=== PATIENT | female | born 1995 | race Asian ===

== ENCOUNTER 2016-11-29 | Emergency (ER) | payer SELFPAY | END 2016-11-29 15:47 | disposition left against medical advice (07) | DX: Z53.21 Procedure and treatment not carried out due to patient leaving prior to being seen by health care provider (principal) ==

== ENCOUNTER 2018-07-23 15:32 | Emergency (ER) | payer MEDICAID ==
--- NOTE | 2018-07-23 16:12 | ED Physician Documentation ---
History of Present Illness - Stated complaint Stated Complaint: BLEEDING/10WKS - Chief complaint Chief Complaint: Abd Pain - Additonal information Additional information: hx from pt 22 f LMP 05/13 to ED with spotting and cramping no care yet - just + HCG at clinic on [place] Review of Systems Constitutional: denies: Fever GI: reports: Abdominal Pain : reports: Vaginal bleeding, Now EGA PD PAST MEDICAL HISTORY - Past Medical History Psych: Depression - Past Surgical History Past Surgical History: No - Allergies Allergies/Adverse Reactions: Allergies Allergy/AdvReac Type Severity Reaction Status Date / Time No Known Drug Allergies Allergy Verified 07/23/18 15:41 - Social History Does the pt smoke?: No Smoking Status: Never smoker Does the pt drink ETOH?: Yes Does the pt have substance abuse?: Yes Substance Use and Type: Marijuana - Immunizations Immunizations are current?: Yes - POLST Patient has POLST: No PD ED PE NORMAL - Vitals Vital signs reviewed: Yes - Neck Neck: Supple, no meningeal sign - Cardiac Cardiac: RRR - Respiratory Respiratory: No respiratory distress, Clear bilaterally - Abdomen Abdomen: Soft, Other (mild lower abd TTP s rebound or gaurding) - Female Female : Lace Cutter present (Debbie ACOSTA), Other (os closed, no tissue, small to mod dark blood from os) Results - Vitals Vitals: Vital Signs - 24 hr 07/23/18 07/23/18 15:39 18:32 Temperature 36.0 C L Heart Rate 90 74 Respiratory 16 16 Rate Blood Pressure 111/55 L 111/66 O2 Saturation 99 99 Oxygen O2 Source Room air - Labs Labs: Laboratory Tests 07/23/18 07/23/18 07/23/18 16:00 16:05 16:05 HCG, Quant 8877.00 Urine Color YELLOW Urine Clarity CLEAR Urine pH 6.5 Ur Specific [place] 1.010 Urine Protein NEGATIVE Urine Glucose (UA) NEGATIVE Urine Ketones NEGATIVE Urine Occult Blood LARGE H Urine Nitrite NEGATIVE Urine Bilirubin NEGATIVE Urine Urobilinogen 0.2 (NORMAL) Ur Leukocyte Esterase NEGATIVE Urine RBC 11-25 H Urine WBC 0-3 Ur Squamous Epith Cells NONE SEEN Amorphous Sediment Moderate Urine Bacteria None Seen Ur Microscopic Review INDICATED Urine Culture Comments NOT INDICATED Blood Type B POSITIVE PD MEDICAL DECISION MAKING - ED course ED course: 10 weeks by dates quant 8K - well above threshold to see on sono but no IUP on OB sono will consult OBGYN for possible ectopic + blood type seen by Dr Farfan non tender during his exam he favors early IUP or threatened miscarriage, ectopic still possible but unlikely, desired preg, he rec 48 hr rpt quant and [facility] clinic sono (he arrange) and dc with ectopic precautions - Sepsis Event Vital Signs: Vital Signs - 24 hr 07/23/18 07/23/18 15:39 18:32 Temperature 36.0 C L Heart Rate 90 74 Respiratory 16 16 Rate Blood Pressure 111/55 L 111/66 O2 Saturation 99 99 Oxygen O2 Source Room air Departure - Departure Disposition: Home, Self Care Clinical Impression: Hemorrhage, , early Condition: Good Instructions: ED Abdominal Pain Rule Out Ectopic, ED Miscarriage Poss Follow-Up: Demetrio Farfan MD [Provider Admit Priv/Credential] - (Tuesday as planned) Comments: You are Your quantitative HCG value was 8877 Your blood type is B + The ultrasound did not show a yet This means one of three things 1) this is an early and the baby is not yet big enough to be seen 2) this is a miscarriage and the baby has not developed or has already passed out 3) this is an ectopic and the baby is not in the uterus There is no safe way to know for sure which of these three possibilities is going on right now So Dr Farfan recommends that we let you go home and have you come back to the hospital lab to get a repeat quantitative HCG and then be seen in [facility] clinic here on the hospital grounds on Tuesday If at any point between now and then you feel worse - heavier bleeding, feeling faint, severe pain etc, please get a ride straight back to the ER - we are always open Since this may be a normal early , no alcohol, no meds except tylenol, take your vitamins etc
[2018-07-23 16:25] LABS: BILIRUBIN,URINE NEGATIVE (NEGATIVE); GLUCOSE, URINE (UA) NEGATIVE (NEGATIVE); KETONES,URINE (UA) NEGATIVE (NEGATIVE); LEUKOCYTE ESTERASE, URINE NEGATIVE (NEGATIVE); NITRITE,URINE NEGATIVE (NEGATIVE); OCCULT BLOOD,URINE LARGE (NEGATIVE); PH,URINE 6.5 PH (5.0-7.5); PROTEIN,URINE NEGATIVE (NEGATIVE); UROBILINOGEN,URINE 0.2 (NORMAL) E.U./dL (NORMAL)
[2018-07-23 16:27] LABS: CLARITY,URINE CLEAR (CLEAR)
[2018-07-23 16:47] LABS: BACTERIA,URINE None Seen /HPF (None Seen); SQUAMOUS EPITHELIAL CELL,UR NONE SEEN (<= Few)
[2018-07-23 16:48] LABS: AMORPHOUS SEDIMENT,UR Moderate /LPF
--- NOTE | 2018-07-23 17:30 | Ultrasound Report ---
Reason: LMP 7 vag bleed and cramp Procedure Date: 07/23/2018 Accession Number: [id number] / [id number] Procedure: US - OB First Trimester CPT Code: FULL RESULT: EXAM: FIRST TRIMESTER OBSTETRIC ULTRASOUND (Less than 11 weeks) EXAM DATE: 07/23/2018 05:22 PM. CLINICAL HISTORY: LMP 05/13 vag bleed and cramp. LMP: 05/13/2018. COMPARISONS: None. TECHNIQUE: Transabdominal and transvaginal ultrasound examination with static image documentation. CLINICAL DATES: EGA 10 weeks 0 days with ANDREA 02/18/2019 based on LMP. ASSESSMENT: Gestational Sac: Single intrauterine. Mean gestational sac diameter: 9.3 mm = under 5 weeks. Embryo: No embryo or yolk sac visualized. MATERNAL STRUCTURES: Uterus: Anteverted. Unremarkable. Cervix: Closed. Right Ovary/Adnexa: The ovary measures 4.3 x 1.5 x 2.5 cm, volume 8.4 cc. Unremarkable. Left Ovary/Adnexa: The ovary measures 3.9 x 1.7 x 2.4 cm, volume 8.3 cc. Unremarkable. Free Fluid: None. Other: None. IMPRESSION: 1. Intrauterine cystic structure most likely representing a gestational sac with no measurable pole likely due to early gestational age. Correlation with serial beta hCG and follow-up ultrasound in 10-14 days recommended. 2. Normal ovaries. RADIA
[2018-07-23 18:35] VITALS: BP 111/66
--- NOTE | 2018-07-23 23:52 | PREOP HISTORY & PHYSICAL ---
DATE OF SERVICE: 07/23/2018 Physician: Demetrio Farfan MD IDENTIFICATION: A 22-year-old G2, P1 female whose last menstrual period was 05/14/2018, making her 10.0 weeks, giving her EDC of 02/18/2019. CHIEF COMPLAINT: Vaginal bleeding. HISTORY OF PRESENT ILLNESS: Patient states she had some vaginal bleeding started on Tuesday of last week. It was mild. She also has noted some cramping over the last 4 days, passing some small clots, but denies pelvic pain. She denies any history of IUD use, chlamydia, or gonorrhea. She has a 6-month-old baby with her that was born on 07/27/2017. They have been using condoms intermittently for contraception. This is unplanned, but she is currently accepting at this time. PAST MEDICAL HISTORY: Patient denies any hypertensive, diabetic, cardiac, or pulmonary disease. PAST SURGICAL HISTORY: None. ALLERGIES: NONE KNOWN. CURRENT MEDICATIONS: None. HABITS: The patient smokes 1-2 cigarettes per day. Denies use of alcohol. Does smoke pot fairly frequently and had her last dose this morning. She is doing this for anxiety. SOCIAL HISTORY: The patient is and lives with her spouse, works as a homemaker. FAMILY HISTORY: Negative for any SECURITY PROJECT MANAGER cancer. It is negative for diabetes or hypertension. PHYSICAL EXAMINATION GENERAL: Well-developed, well-nourished female, in no acute distress at this time. VITAL SIGNS: Pulse 74, blood pressure 111/66, respirations 16, 99% saturation on room air, temperature 36.0. HEENT: Pupils equal, round. Extraocular muscles intact. Thyroid is not palpably enlarged. HEART: Regular rate and rhythm without murmurs. LUNGS: Lung pena are clear without rales or wheezes. ABDOMEN: Soft, nontender without evidence of any guarding. Good bowel sounds. No CVA tenderness noted. PELVIC: Exam shows a uterus, which is nontender. There is no cervical motion tenderness. There is no adnexal tenderness at this time. DIAGNOSTIC AND IMAGING DATA: Ultrasound performed showed a 9.3-mm sac in the uterus, which is equivalent to a 5-week gestation. No pole was noted. The adnexa showed no masses and there is no fluid in the cul-de-sac. She had a quantitative hCG of 8877. ASSESSMENT AND PLAN 1. A 22-year-old G2, P1, female 10 weeks 0 days. 2. This most likely represents a miscarriage. Certainly is threatened at this time. At this time, with lack of any adnexal findings or ultrasonic findings, the chance of being ectopic are low at this time. However, the patient has been given instructions to monitor for signs or symptoms of ectopic . We will plan to see the patient back in the office on Tuesday, at which time we will obtain a repeat quantitative hCG as well as perform a repeat pelvic examination. TD: 07/23/2018 19:38 MTDD
== END 2018-07-23 19:25 | disposition home or self-care (01) ==
LOC: ED 15:32
DX: O46.91 Antepartum hemorrhage, unspecified, first trimester (principal); Z3A.10 10 weeks gestation of pregnancy
CPT/HCPCS: 36415; 76801; 76817; 81001; 81003; 84702; 86900; 86901; 87086; 87491; 87591; 99283

== ENCOUNTER 2020-09-16 14:53 | Emergency (ER) | payer MEDICAID ==
[2020-09-16 15:17] VITALS: BP 111/91
--- NOTE | 2020-09-16 16:42 | ED Physician Documentation ---
History of Present Illness - Stated complaint Stated Complaint: ITCHY BURNING SKIN - Chief complaint Chief Complaint: Wound - Additonal information Additional information: 24-year-old female presents the emergency department for evaluation of her eczema. She reports a longstanding history of asthma that is gotten acutely worse over the last few weeks and the change in weather. She has been applying Aquaphor but it is not helpful. She now has multiple patches with some scaling as well as open creases. no fevers surrounding erythema Review of Systems Constitutional: reports: Reviewed and negative Eyes: reports: Reviewed and negative Nose: reports: Reviewed and negative Throat: reports: Reviewed and negative Cardiac: reports: Reviewed and negative Respiratory: reports: Reviewed and negative GI: reports: Reviewed and negative : reports: Reviewed and negative Skin: reports: Rash (eczema elbows, abdomen, forearm) Musculoskeletal: reports: Reviewed and negative PD PAST MEDICAL HISTORY - Past Medical History Psych: Depression - Past Surgical History Past Surgical History: No - Present Medications Home Medications: Ambulatory Orders Medication Instructions Recorded Confirmed Triamcinolone 0.5% Cream [Kenalog 1 gm TOP BID #1 tube 09/16/20 0.5% Cream] - Allergies Allergies/Adverse Reactions: Allergies Allergy/AdvReac Type Severity Reaction Status Date / Time No Known Drug Allergies Allergy Verified 07/23/18 15:41 - Social History Does the pt smoke?: No Smoking Status: Never smoker Does the pt drink ETOH?: Yes Does the pt have substance abuse?: Yes - Immunizations Immunizations are current?: Yes - POLST Patient has POLST: No PD ED PE EXPANDED - Derm Derm: Other (Scaling pruritic patches on the abdomen forearms and extensor surface of elbow consistent with eczema. Scaling and cracking but no drainage or surrounding erythema consistent with cellulitis) Results - Vitals Vitals: Vital Signs - 24 hr 09/16/20 15:11 Temperature 36.1 C L Heart Rate 87 Respiratory 14 Rate Blood Pressure 111/91 H O2 Saturation 100 Oxygen O2 Source Room air PD MEDICAL DECISION MAKING - ED course Complexity details: considered differential, d/w patient ED course: 24-year-old female presents to the emergency department for evaluation and treatment of her eczema. She has had this for her entire life and Aquaphor is no longer can attributing to her managing the eczematous patches. Reassuringly there is no signs of surrounding infection. We will start her on triamcinolone ointment and have her follow-up with primary care provider Departure - Departure Disposition: 01 Home, Self Care Clinical Impression: Eczema Qualifiers: Eczema type: unspecified Qualified Code(s): L30.9 - Dermatitis, unspecified Condition: Stable Record reviewed to determine appropriate education?: Yes Instructions: ED Dermatitis Atopic Eczema Prescriptions: Triamcinolone 0.5% Cream [Kenalog 0.5% Cream] 1 gm TOP BID #1 tube Comments: Lets have you start applying a steroid cream to your rash twice daily. This is called triamcinolone. I would like you to schedule an appointment with your primary care provider for follow-up. If the steroid cream does not make the rash better there are alternative medications that can be tried. Please return to the ER if you have redness, fevers or any concerns of infection surrounding your rash
== END 2020-09-16 17:24 | disposition home or self-care (01) ==
LOC: ED 14:53
DX: L30.9 Dermatitis, unspecified (principal)
CPT/HCPCS: 99281; 99282

== ENCOUNTER 2021-04-19 19:37 | Emergency (ER) | payer MEDICAID ==
--- NOTE | 2021-04-19 20:09 | ED Physician Documentation ---
PD HPI NVD - Stated complaint Stated Complaint: N/V/FEELING FEVERISH - Chief complaint Chief Complaint: Abd Pain - History obtained from History obtained from: Patient - History of Present Illness Timing - onset: How many weeks ago (1) Timing - duration: Weeks (1) Timing - details: Gradual onset, Still present, Waxing and waning (Having nausea with episodic vomiting over the past week. Having upper abdominal crampy pains at times. Denies pelvic pain vaginal bleeding or discharge. She had a home test positive last week. Has appointment with provider next week.) Associated symptoms: Abdominal pain (mainly upper abd intermittently.), Loss of appetite. No: Fever, Near syncope / syncope, Dysuria Contributing factors: Other (early ). No: Sick contact, Bad food, Recent antibiotics Improved by: No: Vomiting Worsened by: Eating Similar symptoms before: Has not had sx before Recently seen: Not recently seen Review of Systems Constitutional: denies: Fever Nose: denies: Rhinorrhea / runny nose, Congestion Throat: denies: Sore throat Respiratory: denies: Cough GI: reports: Abdominal Pain (intermittent crampy), Nausea, Vomiting. denies: Constipation, Diarrhea : reports: Now EGA (not sure as had irregular periods; last menses for sure was January but believes had one in February.). denies: Dysuria, Frequency Skin: denies: Rash, Lesions Neurologic: reports: Generalized weakness. denies: Focal weakness, Numbness PD PAST MEDICAL HISTORY - Past Medical History Cardiovascular: None Respiratory: None Neuro: None Endocrine/Autoimmune: None GI: None NURSES AIDE: None : None HEENT: None Psych: Depression Musculoskeletal: None Derm: Eczema - Past Surgical History Past Surgical History: No - Present Medications Home Medications: Ambulatory Orders Medication Instructions Recorded Confirmed Triamcinolone 0.5% Cream [Kenalog 1 gm TOP BID #1 tube 09/16/20 0.5% Cream] Famotidine [Pepcid] 20 mg PO DAILY #20 tablet 04/19/21 Ondansetron Odt [Zofran] 4 mg TL Q6H PRN #20 tablet 04/19/21 - Allergies Allergies/Adverse Reactions: Allergies Allergy/AdvReac Type Severity Reaction Status Date / Time No Known Drug Allergies Allergy Verified 04/19/21 19:51 - Social History Does the pt smoke?: No Smoking Status: Never smoker Does the pt drink ETOH?: Yes Does the pt have substance abuse?: Yes - Immunizations Immunizations are current?: Yes - POLST Patient has POLST: No PD ED PE NORMAL - Vitals Vital signs reviewed: Yes - General General: Alert and oriented X 3, No acute distress, Well developed/nourished - HEENT HEENT: Pharynx benign - Neck Neck: Supple, no meningeal sign, No adenopathy - Cardiac Cardiac: RRR, No murmur - Respiratory Respiratory: Clear bilaterally - Abdomen Abdomen: Normal bowel sounds, Soft, Non distended, No organomegaly, Other (tender upper abd epigastric and RUQ area. No percussion nor rebound tenderness. ) - Female Female : Deferred - Back Back: No CVA TTP - Derm Derm: Normal color, Warm and dry - Neuro Neuro: Alert and oriented X 3, No motor deficit, Normal speech Results - Vitals Vitals: Vital Signs - 24 hr 04/19/21 04/19/21 04/19/21 19:48 21:44 23:00 Temperature 37.1 C Heart Rate 68 87 69 Respiratory 15 16 16 Rate Blood Pressure 111/63 97/62 99/65 O2 Saturation 100 99 99 Oxygen O2 Source Room air - Labs Labs: Laboratory Tests 04/19/21 04/19/21 04/19/21 20:04 20:04 20:38 WBC RBC Hgb Hct MCV MCH MCHC RDW Plt Count MPV Neut # (Auto) Lymph # (Auto) Sullivan # (Auto) Eos # (Auto) Baso # (Auto) Absolute Nucleated RBC Nucleated RBC % Sodium Potassium Chloride Carbon Dioxide Anion Gap BUN Creatinine Estimated GFR (MDRD) Glucose Calcium Total Bilirubin AST ALT Alkaline Phosphatase Total Protein Albumin Globulin Albumin/Globulin Ratio Lipase HCG, Quant 94971.00 Urine Color YELLOW Urine Clarity CLEAR Urine pH 6.5 Ur Specific [place] 1.015 Urine Protein NEGATIVE Urine Glucose (UA) NEGATIVE Urine Ketones 15 H Urine Occult Blood NEGATIVE Urine Nitrite NEGATIVE Urine Bilirubin NEGATIVE Urine Urobilinogen 0.2 (NORMAL) Ur Leukocyte Esterase NEGATIVE Ur Microscopic Review NOT INDICATED Urine Culture Comments NOT INDICATED Urine HCG, Qual POSITIVE 04/19/21 04/19/21 20:38 20:38 WBC 9.9 RBC 4.33 Hgb 11.6 L Hct 35.6 L MCV 82.2 MCH 26.8 L MCHC 32.6 RDW 12.0 Plt Count 164 MPV 12.1 H Neut # (Auto) 7.1 H Lymph # (Auto) 1.7 Sullivan # (Auto) 0.8 Eos # (Auto) 0.1 Baso # (Auto) 0.1 Absolute Nucleated RBC 0.00 Nucleated RBC % 0.0 Sodium 134 L Potassium 3.3 L Chloride 105 Carbon Dioxide 20 L Anion Gap 9.0 BUN 8 Creatinine 0.6 Estimated GFR (MDRD) 121 Glucose 93 Calcium 9.1 Total Bilirubin 0.9 AST 15 ALT 16 Alkaline Phosphatase 39 L Total Protein 7.2 Albumin 4.1 Globulin 3.1 Albumin/Globulin Ratio 1.3 Lipase 30 HCG, Quant Urine Color Urine Clarity Urine pH Ur Specific [place] Urine Protein Urine Glucose (UA) Urine Ketones Urine Occult Blood Urine Nitrite Urine Bilirubin Urine Urobilinogen Ur Leukocyte Esterase Ur Microscopic Review Urine Culture Comments Urine HCG, Qual - Rads (name of study) RUQ U/S Radiology: Prelim report reviewed (gallbladder normal (incidental polyp)), See rad report OB U/S Radiology: Prelim report reviewed (single IUP HR 133, 6w4d. Else normal. ), See rad report PD MEDICAL DECISION MAKING - ED course Complexity details: reviewed results, re-evaluated patient (improved symptoms with fluids and meds. ), considered differential (She is early . She had irregular periods so not sure exactly on the dates but believes around 6 weeks. Having nausea and vomiting which likely relates to the . Also having upper abdominal crampy pain with that so we can evaluate gallbladder etc.), d/w patient Departure - Departure Disposition: 01 Home, Self Care Clinical Impression: Dehydration Qualifiers: Weeks of gestation: less than 8 weeks Qualified Code(s): Z3A.01 - Less than 8 weeks gestation of Nausea and vomiting Qualifiers: Vomiting type: unspecified Vomiting Intractability: intractable Qualified Code(s): R11.2 - Nausea with vomiting, unspecified Gastritis, acute Qualifiers: Gastritis type: unspecified gastritis Gastritis bleeding: without bleeding Qualified Code(s): K29.00 - Acute gastritis without bleeding Condition: Stable Record reviewed to determine appropriate education?: Yes Instructions: ED Gastritis, ED Preg Morning Sickness Follow-Up: JONG SOMMERS ARNP [Primary Care Provider] - Prescriptions: Famotidine [Pepcid] 20 mg PO DAILY #20 tablet Ondansetron Odt [Zofran] 4 mg TL Q6H PRN #20 tablet PRN Reason: Nausea / Vomiting Comments: Your ultrasound shows an intrauterine with normal heartbeat and estimated gestational age of 6 weeks 4 days. No other abnormalities are seen on the ultrasound. The ultrasound of your gallbladder appears normal. I presume the pain in the upper abdomen is an irritation of the stomach from vomiting repetitively. Small frequent fluids and bland food. Ondansetron every 4-6 hours if needed for nausea. Famotidine acid reducing medicine twice daily for several days and then once daily for couple of weeks to allow healing of the stomach. Tylenol every 4-6 hours if needed for pains. Follow-up as planned regarding the . Return to the ER if worsening symptoms overall. Discharge Date/Time: 04/19/21 23:54
[2021-04-19 20:12] LABS: BILIRUBIN,URINE NEGATIVE (NEGATIVE); GLUCOSE, URINE (UA) NEGATIVE (NEGATIVE); HCG UR QUAL POSITIVE; KETONES,URINE (UA) 15 mg/dL (NEGATIVE); LEUKOCYTE ESTERASE, URINE NEGATIVE (NEGATIVE); NITRITE,URINE NEGATIVE (NEGATIVE); OCCULT BLOOD,URINE NEGATIVE (NEGATIVE); PH,URINE 6.5 PH (5.0-7.5); PROTEIN,URINE NEGATIVE (NEGATIVE); UROBILINOGEN,URINE 0.2 (NORMAL) E.U./dL (NORMAL)
[2021-04-19 20:13] LABS: CLARITY,URINE CLEAR (CLEAR)
[2021-04-19] MEDS ORDERED: SODIUM CHLORIDE 0.9% 1,000 ML IV STA ×2 (20:28→20:30)
[2021-04-19] MEDS ORDERED: ONDANSETRON 4 MG/2 ML VIAL IVP STA (20:28)
[2021-04-19] MEDS ORDERED: FAMOTIDINE 20 MG/2 ML VIAL IVP STA (20:29)
[2021-04-19 20:43] LABS: BASOPHILS # (AUTO) 0.1 10^3/uL (0.0-0.1); BASOPHILS % (AUTO) 0.6 %; EOSINOPHILS # (AUTO) 0.1 10^3/uL (0.0-0.7); HCT - HEMATOCRIT 35.6 % (37.0-47.0); HGB - HEMOGLOBIN 11.6 g/dL (12.0-16.0); LYMPHOCYTES # (AUTO) 1.7 10^3/uL (1.5-3.5); LYMPHOCYTES % (AUTO) 17.6 %; MEAN CORPUSCULAR HEMOGLOBIN 26.8 pg (27.0-31.0); MEAN CORPUSCULAR HGB CONC 32.6 g/dL (32.0-36.0); MEAN CORPUSCULAR VOLUME 82.2 fL (81.0-99.0); MEAN PLATELET VOLUME 12.1 fL (7.9-10.8); MONOCYTES # (AUTO) 0.8 10^3/uL (0.0-1.0); MONOCYTES % (AUTO) 8.4 %; NEUTROPHILS # (AUTO) 7.1 10^3/uL (1.5-6.6); NEUTROPHILS % (AUTO) 72.1 %; PLT - PLATELET COUNT 164 10^3/uL (130-450); RED BLOOD COUNT 4.33 10^6/uL (4.20-5.40); WHITE BLOOD COUNT 9.9 x10^3/uL (4.8-10.8)
[2021-04-19 20:57] LABS: ALBUMIN 4.1 g/dL (3.2-5.5); ALBUMIN/GLOBULIN RATIO 1.3 (1.0-2.2); BILIRUBIN,TOTAL 0.9 mg/dL (0.2-1.0); CALCIUM 9.1 mg/dL (8.5-10.3); CREATININE 0.6 mg/dL (0.4-1.0); POTASSIUM 3.3 mmol/L (3.5-5.0); TOTAL PROTEIN 7.2 g/dL (6.7-8.2)
[2021-04-19 23:21] VITALS: BP 99/65
[2021-04-19] MEDS ORDERED: ONDANSETRON ODT 4 MG Prepack 2 TL PRN (23:22)
[2021-04-19] MEDS ORDERED: DEXAMETHASONE 10 MG/ML VIAL IVP STA (23:22)
--- NOTE | 2021-04-20 11:13 | Ultrasound Report ---
PROCEDURE: OB First Trimester INDICATIONS: early , abd pain/vomiting OUTSIDE/PRIOR DATING DATA: Last menstrual period (LMP): Unknown. LMP-based estimated date of delivery (ANDREA): Unknown. First dating scan (date and location): 04/19/2021 [facility]. Estimated date of delivery (ANDREA) from first dating scan: 11/29/21 TECHNIQUE: Real-time scanning was performed of the fetus and maternal pelvic organs, with image documentation. COMPARISON: None FINDINGS: Embryo: Single living is identified with crown-rump length measuring 0.67 cm) to 6 weeks 4 days. Heart rate: 133 bpm Measurement variability in dating: +/- 4 weeks by LMP, +/- 7 days by mean sac diameter (use before 6 weeks gestation if crown-rump length not able to be measured), +/- 5 days by crown-rump length (6-12 weeks gestation). Maternal organs: Ovaries demonstrate a right corpus luteal cyst.. There is a focus of heterogeneous echogenicity within the posterior right uterus measuring approximately 2.5 x 2.3 x 2.5 cm. IMPRESSION: 1. Single live intrauterine with ultrasound gestational age of 6 weeks 4 days. 2. Focus of uterine echogenicity possibly representing fibroid. The above findings are concordant with preliminary report. Reviewed by: Ceci Aranda MD on 04/20/2021 11:12 AM PDT Approved by: Ceci Aranda MD on 04/20/2021 11:12 AM PDT Station ID: [id number]
--- NOTE | 2021-04-20 11:16 | Ultrasound Report ---
PROCEDURE: Abdomen Limited INDICATIONS: upper abd pain and vomiting; eval GB TECHNIQUE: Real-time scanning was performed of the abdominal and retroperitoneal organs, with image documentatio n. COMPARISON: None. FINDINGS: Liver: Liver is normal in size and homogeneous in echotexture. Gallbladder: Small focus of ringdown artifact is present as present along the anterior wall. Wall thi ckness is within normal limits measuring 2.0 cm. Biliary ducts: Intrahepatic bile ducts are non-dilated. Extrahepatic bile duct caliber measures 3.3 mm. Normal is 6-7 mm or less in diameter, or 10 mm or less post-cholecystectomy. Pancreas: Visualized portions of the pancreas are sonographically normal. Kidneys: Kidneys are normal in size and echotexture. Right kidney measures 10.7 cm long. No hydron ephrosis or nephrolithiasis. No solid masses. IVC: Intrahepatic inferior vena cava is patent. Miscellaneous: No free abdominal fluid. IMPRESSION: 1. Adenomyomatosis is present within the gallbladder. Otherwise, unremarkable exam. The above findings are concordant with preliminary report. Reviewed by: Ceci Aranda MD on 04/20/2021 11:14 AM PDT Approved by: Ceci Aranda MD on 04/20/2021 11:14 AM PDT Station ID: [id number]
--- NOTE | 2021-04-20 11:16 | Ultrasound Report ---
PROCEDURE: OB Transvaginal INDICATIONS: early , abd pain/vomiting OUTSIDE/PRIOR DATING DATA: Last menstrual period (LMP): Unknown. LMP-based estimated date of delivery (ANDREA): Unknown. First dating scan (date and location): 04/19/2021 [facility]. Estimated date of delivery (ANDREA) from first dating scan: 11/29/21 TECHNIQUE: Real-time scanning was performed of the fetus and maternal pelvic organs, with image documentation. COMPARISON: None FINDINGS: Embryo: Single living is identified with crown-rump length measuring 0.67 cm) to 6 weeks 4 days. Heart rate: 133 bpm Measurement variability in dating: +/- 4 weeks by LMP, +/- 7 days by mean sac diameter (use before 6 weeks gestation if crown-rump length not able to be measured), +/- 5 days by crown-rump length (6-12 weeks gestation). Maternal organs: Ovaries demonstrate a right corpus luteal cyst.. There is a focus of heterogeneous echogenicity within the posterior right uterus measuring approximately 2.5 x 2.3 x 2.5 cm. IMPRESSION: 1. Single live intrauterine with ultrasound gestational age of 6 weeks 4 days. 2. Focus of uterine echogenicity possibly representing fibroid. The above findings are concordant with preliminary report. Reviewed by: Ceci Aranda MD on 04/20/2021 11:15 AM PDT Approved by: Ceci Aranda MD on 04/20/2021 11:15 AM PDT Station ID: [id number]
== END 2021-04-19 23:54 | disposition home or self-care (01) ==
LOC: ED 19:37
DX: O21.9 Vomiting of pregnancy, unspecified (principal); O99.281 Endocrine, nutritional and metabolic diseases complicating pregnancy, first trimester; E86.0 Dehydration; O99.611 Diseases of the digestive system complicating pregnancy, first trimester; K29.00 Acute gastritis without bleeding; Z3A.01 Less than 8 weeks gestation of pregnancy
CPT/HCPCS: 36415; 80053; 81001; 81003; 81025; 83690; 84702; 85025; 87086; 96361; 96374; 96375; 99283